=== PATIENT | male | born 1955 | race Caucasian/White ===

== ENCOUNTER → 2020-12-31 | Outpatient (CLI) | payer OTHER | LOC: LAB 10:17 → LAB SHORT 10:17 | DX: D22.5 Melanocytic nevi of trunk (principal); L57.0 Actinic keratosis; L08.89 Other specified local infections of the skin and subcutaneous tissue | CPT/HCPCS: 88305 ==

== ENCOUNTER → 2022-12-08 | Outpatient (CLI) | payer MEDICARE, OTHER ==
[2022-12-08 16:56] LABS: Albumin, Blood 3.6 g/dL (3.4-5.0); Albumin/Globulin Ratio 0.9 (0.8-1.8); Bilirubin, Total 0.3 mg/dL (0.1-1.0); Bun/Creatinine Ratio 20.6 (12.0-20.0); Calcium, Blood 9.4 mg/dL (8.5-10.1); Creatinine, Blood 0.78 mg/dL (0.60-1.20); Globulin, Blood 3.8 g/dL (2.2-4.0); Potassium, Blood 4.3 mmol/L (3.5-5.5); Total Protein, Blood 7.4 g/dL (6.4-8.2)
[2022-12-10 02:07] LABS: HEMOGLOBIN A1C 12.1 % (4.8-5.6)
== END ==
LOC: LAB 15:15 → LAB SHORT 15:15
PROVIDERS: Physician Assistant
DX: E11.9 Type 2 diabetes mellitus without complications (principal)
CPT/HCPCS: 80053; 83036